=== PATIENT | female | born 1995 | race Caucasian/White ===

== ENCOUNTER → 2017-04-22 | Outpatient (REF) | payer OTHER ==
[2017-04-22 19:23] LABS: HEMATOCRIT 43.3 % (36.0-47.0); MEAN CORPUSCULAR HEMOGLOBIN 28.1 pg (27.0-33.0); MEAN CORPUSCULAR HGB CONC 32.3 g/dl (32.0-36.5); MEAN CORPUSCULAR VOLUME 86.9 fl (80.0-96.0); PLATELET COUNT, AUTOMATED 426 10^3/uL (150-450); RED BLOOD COUNT 4.98 10^6/uL (4.00-5.40); RED CELL DISTRIBUTION WIDTH 12.9 % (11.5-14.5); WHITE BLOOD COUNT 9.6 10^3/uL (4.0-10.0)
[2017-04-22 20:19] LABS: LUTEINIZING HORMONE 8.7 mIU/mL; PROLACTIN 6.1 NG/ML
[2017-04-25 10:15] LABS: 17 HYDROXY PROGESTERONE 45 ng/dL (.); DEHYDROEPIANDROSTERONE SULFATE 653.3 ug/dL (110.0-431.7); TESTOSTERONE FREE (DIRECT) 8.2 pg/mL (0.0-4.2)
== END ==
LOC: M SFHCWAGY 17:29
DX: N92.6 Irregular menstruation, unspecified (principal)

== ENCOUNTER → 2017-05-08 | Outpatient (CLI) | payer OTHER | LOC: M WHC 12:52 | DX: N92.1 Excessive and frequent menstruation with irregular cycle (principal); Z11.3 Encounter for screening for infections with a predominantly sexual mode of transmission | CPT/HCPCS: 76830 ==

== ENCOUNTER → 2017-06-19 | Outpatient (REF) | payer OTHER ==
[2017-06-19 12:58] LABS: FREE THYROXINE INDEX 2.7 % (1.3-4.8); T UPTAKE 31 % (30-39); THYROXINE (T4) 8.7 UG/DL (4.5-12.0)
== END ==
LOC: M SFHCLERA 10:09
DX: E03.8 Other specified hypothyroidism (principal)
CPT/HCPCS: 84443

== ENCOUNTER → 2017-07-10 | Outpatient (CLI) | payer OTHER | LOC: M LRY 08:18 | DX: E03.8 Other specified hypothyroidism (principal) | CPT/HCPCS: 76536 ==

== ENCOUNTER → 2017-09-08 | Outpatient (REF) | payer OTHER | LOC: M SFHCLERA 09:37 | DX: E03.9 Hypothyroidism, unspecified (principal) ==

== ENCOUNTER → 2018-01-09 | Outpatient (REF) | payer OTHER | LOC: M SFHCLERA 13:48 | DX: E03.8 Other specified hypothyroidism (principal) | CPT/HCPCS: 84443 ==

== ENCOUNTER → 2020-02-19 | Outpatient (CLI) | payer SELFPAY | LOC: M LABSMTC 10:01 | PROVIDERS: ATTEND Pediatrics | DX: Z20.828 Contact with and (suspected) exposure to other viral communicable diseases (principal) ==